=== PATIENT | female | born 1985 | race Caucasian/White ===

== ENCOUNTER 2020-06-12 09:02 | Day surgery (SDC) | payer OTHER, SELFPAY ==
[~2020-06-12] VITALS: Ht 160 cm; Wt 81.6 kg
[2020-06-12] MEDS ORDERED: diphenhydrAMINE 50 MG/ML VIAL ONE (10:39)
[2020-06-12] MEDS ORDERED: fentaNYL citrate 0.05 MG/ML VIAL ONE (10:39)
[2020-06-12] MEDS ORDERED: MIDAZOLAM 5 MG/5 ML VIAL ONE (10:39)
[2020-06-12] MEDS ORDERED: LIDOCAINE VISCOUS 2% 20 ML UDC ONE (10:40)
[2020-06-12] MEDS ORDERED: MIDAZOLAM 2 MG/2 ML VIAL IVP ONE (11:55)
[2020-06-12] MEDS ORDERED: fentaNYL citrate 0.05 MG/ML VIAL IVP ONE (11:55)
== END 2020-06-12 11:55 | disposition home or self-care (01) ==
LOC: MFCC 09:02 → MDS 09:02
PROVIDERS: ATTEND Internal Medicine Gastroenterology
DX: R10.13 Epigastric pain (principal); K31.7 Polyp of stomach and duodenum; K29.70 Gastritis, unspecified, without bleeding; F06.4 Anxiety disorder due to known physiological condition; K52.9 Noninfective gastroenteritis and colitis, unspecified; Z90.49 Acquired absence of other specified parts of digestive tract; G43.909 Migraine, unspecified, not intractable, without status migrainosus; Z79.899 Other long term (current) drug therapy; Z20.828 Contact with and (suspected) exposure to other viral communicable diseases
CPT/HCPCS: 43239; 81025; 88305; 88312; 88313; J2250; J3010; U0003; J1200